=== PATIENT | male | born 1960 | race Caucasian/White ===

== ENCOUNTER 2018-08-29 21:28 | Inpatient (IN) | payer OTHER ==
[2018-08-29 22:31] LABS: #Basophils 0.1 thou/uL (0.0-0.2); #Eosinphils 0.2 thou/uL (0.0-0.7); #Lymphocytes 2.5 thou/uL (1.20-3.40); #Monocytes 0.8 thou/uL (0.11-0.59); #Neutrophils 7.7 thou/uL (1.40-6.50); %Basophils 1.3 % (0.0-1.0); %Eosinophils 1.6 % (0.0-10.0); %Lymphocytes 22.4 % (21.0-51.0); %Monocytes 6.9 % (0.0-10.0); %Neutrophils 67.8 % (42.0-75.0); Hemoglobin 15.6 g/dL (14.0-18.0); Mean Corpuscular HGB CONC 33.7 g/dL (32.0-36.0); Mean Corpuscular Hemoglobin 32.7 pg (27.0-31.0); Mean Corpuscular Volume 97.1 fL (78.0-98.0); Mean Platelet Volume 10.1 fL (7.4-10.4); Platelet Count 176 thou/uL (130-400); RBC Distribution Width 13.1 % (11.5-14.5); Red Blood Cell (RBC) Count 4.76 mill/uL (4.70-6.10); White Blood Cell (WBC) Count 11.3 thou/uL (4.8-10.8)
[2018-08-29 22:53] LABS: ALT (SGPT) 71 U/L (8-55); AST (SGOT) 53 U/L (5-34); Albumin 3.3 g/dL (3.5-5.0); Alkaline Phosphatase 636 U/L (40-150); Anion Gap 10 mmol/L (10-20); BUN (Urea Nitrogen) 18 mg/dL (8.4-25.7); Bilirubin, Total 6.5 mg/dL (0.2-1.2); Calc. Creatinine Clearance 0 mL/min (70-130); Calcium 9.4 mg/dL (7.8-10.44); Carbon Dioxide 24 mmol/L (22-29); Chloride 107 mmol/L (98-107); Estimated GFR-MDRD 90; Glucose 94 mg/dL (70-105); Potassium 4.4 mmol/L (3.5-5.1); Protein, Total 6.3 g/dL (6.0-8.3); Sodium 137 mmol/L (136-145)
[2018-08-29] MEDS ORDERED: Ketorolac Tromethamine 30 MG/ML VIAL ONE (23:02)
[2018-08-29] MEDS ORDERED: Ondansetron PF 4 MG/2 ML Vial ONE (23:02)
[2018-08-30] MEDS ORDERED: Ondansetron PF 4 MG/2 ML Vial IVP PRN ×2 (01:16→17:14)
[2018-08-30] MEDS ORDERED: Ondansetron ODT 4 MG TAB SL PRN (01:16)
[2018-08-30] MEDS ORDERED: Ketorolac Tromethamine 30 MG/ML VIAL IVP PRN (01:18)
[2018-08-30] MEDS ORDERED: Morphine 4 MG/ML VIAL SLOW IVP PRN ×3 (01:18→17:45)
[2018-08-30 01:35] VITALS: BMI 27.3
[2018-08-30] MEDS: Sodium Chloride 0.9% 1,000 ML IV SCH ×2 (02:14→12:14)
--- NOTE | 2018-08-30 09:33 | ULT ---
RIGHT UPPER QUADRANT ULTRASOUND: DATE: 08/29/2018. HISTORY: Right upper quadrant. TECHNIQUE: Multiplanar, bob scale, sonographic imaging of the right upper quadrant provided. FINDINGS: The tape recording machine operator reports a negative Myers's sign. The pancreas is not well seen secondary to obscura tion from bowel gas. There is nonspecific diffuse intrahepatic biliary dilatation. No discrete focal liver lesion is seen . There is mild diffuse nonspecific gallbladder wall thickening. The common bile duct is dilated, m easuring 1.2 cm. The right kidney measures 10.5 cm craniocaudal dimension and demonstrates no stone, hydronephrosis, or mass. IMPRESSION: Intra- and extrahepatic biliary dilatation. Findings are suspicious for a nonvisualized mass causing an obstruction in the region of the pancreatic head and/or ampulla of Vater. Recommend GI consultat ion. Further imaging assessment via MRI/MRCP and/or CT of the abdomen advised. POS: [facility]
--- NOTE | 2018-08-30 12:42 | CON ---
DATE OF CONSULTATION: 08/30/2018 CHIEF COMPLAINT: Itching, weight loss, and jaundice. HISTORY OF PRESENT ILLNESS: Mr. Marte is a 58-year-old man, who started with generalized itching 3 weeks ago. Around that time, his stools started turning whitish or chad colored. He has 1 formed stool per day in general; however, a couple stools per day over the last few days. He has lost 20 pounds over the last 6 months. He has had no fever. He does get some intermittent vague right upper quadrant aching pain, which is mild and lasts for few minutes at a time, intermittently a few times per day. He has had some nausea after eating over the last 3 weeks. He came to the emergency room for further evaluation. Last night, he had an ultrasound done that showed dilation of the biliary tree. His liver tests were also noted to be elevated. PAST MEDICAL HISTORY: Coronary artery disease status post stent. His most recent stent was in 2017. He has hypertension and hyperlipidemia. PAST SURGICAL HISTORY: Positive for inguinal hernia repair. FAMILY HISTORY: Positive for breast cancer in his mother. SOCIAL HISTORY: He smoked a pack per day for decades. No alcohol. No drugs. ALLERGIES: NO KNOWN DRUG ALLERGIES. MEDICATIONS: Prior to admission; 1. Lisinopril. 2. Atorvastatin. 3. Metoprolol. 4. Plavix. REVIEW OF SYSTEMS: Negative x10 systems reviewed except as stated in the history of present illness. PHYSICAL EXAMINATION: VITAL SIGNS: Temperature 97.6, pulse 60, and blood pressure 105/62. GENERAL: He is in no acute distress. He is jaundiced. He has scleral icterus. Oropharynx is clear without lesions. No cervical or supraclavicular lymphadenopathy. LUNGS: Clear to auscultation bilaterally. HEART: Regular rate and rhythm without murmur. ABDOMEN: Soft. Mild tenderness in the right upper quadrant without guarding. Bowel sounds are present. EXTREMITIES: No lower extremity edema. LABORATORY DATA: White blood cell count 11.3, hemoglobin 15.6, and platelets 176. Creatinine 0.88, bilirubin 6.5, AST 53, ALT 71, alkaline phosphatase 636, lipase 144, and albumin 3.3. IMPRESSION: Obstructive jaundice. Ultrasound shows dilation of the intra and extrahepatic ducts and common bile duct down to the head of the pancreas. The bile duct is dilated to 1.2 cm. His bilirubin and alkaline phosphatase are elevated at 6.5 and 600. He presents with a history concerning for malignancy causing obstruction given the weight loss and acholic stools and pruritus. RECOMMENDATIONS: CT scan of the abdomen and pelvis to evaluate for pancreatic head mass. The primary bile duct tumor could also cause this as well. Next step will depend on the findings on the CT. If there is significant liver lesions and likely the next step would be a liver biopsy. If the liver is clear and he has a mass confined to the head of the pancreas, then the next step would likely be endoscopic ultrasound with possible surgery to follow. If no mass is seen in the pancreas, then the next step will likely be MRCP and MRI. Job ID: [id number]
[2018-08-30] MEDS ORDERED: ISOVUE-370 76%-LOCM 1 ML ONE (14:12)
--- NOTE | 2018-08-30 14:45 | CT ---
CT ABDOMEN AND PELVIS WITH IV CONTRAST: DATE: 08/30/2018. PROVIDED CLINICAL HISTORY: Biliary obstruction. FINDINGS: The visualized lung bases are free of significant opacity. There is intrahepatic biliary ductal dilatation and prominence of the common duct. The gallbladder i s moderately distended without overt pericholecystic fluid or fat stranding. There is no evidence fo r a radiopaque common duct calculus. The pancreatic duct is not dilated. There is nonspecific mucos al prominence in the region of the distal common duct/ampulla of Vater. The spleen, pancreas, kidneys, and adrenal glands appear unremarkable. There is no bowel dilatation, inflammatory fat stranding, free fluid, or lymph node enlargement appar ent. There is conspicuous atherosclerotic plaque involving the distal abdominal aorta. Vascular malou cifications are also seen. The osseous structures demonstrate no concerning lytic or blastic lesions. IMPRESSION: 1. Nonspecific soft tissue prominence in the region of the distal common duct/ampulla of Vater, whic h may reflect neoplasm given the biliary obstructive change noted. 2. Atherosclerosis. POS: [facility]
[2018-08-30] MEDS ORDERED: Dextrose 50% Abboject 50 ML SYRINGE SLOW IVP PRN (17:14)
[2018-08-30] MEDS ORDERED: Acetaminophen 325 MG TAB PO PRN (17:14)
[2018-08-30] MEDS ORDERED: Dextrose 5% in Water 1,000 ML IV PRN (17:14)
[2018-08-30] MEDS ORDERED: Mag-Al 1200 mg/1200 mg/30 ML UDCUP PO PRN (17:14)
[2018-08-30] MEDS ORDERED: Promethazine HCl 25 MG/ML VIAL IM PRN (17:14)
[2018-08-30] MEDS ORDERED: hydrALAZINE 20 MG/ML VIAL SLOW IVP PRN (17:14)
[2018-08-30] MEDS ORDERED: Calcium Carbonate 500 MG ChewTAB PO PRN (17:14)
[2018-08-30] MEDS ORDERED: hydrOXYzine 25 MG TAB PO PRN (18:29)
--- NOTE | 2018-08-30 18:52 | PRG ---
DATE OF SERVICE: 08/30/2018 SUBJECTIVE: Mr. Marte had a CT scan performed today. This shows a soft tissue prominence in the distal bile duct or ampulla. No obvious evidence of metastatic lesions was seen. Given the location of this, if it is a malignancy, it appears to be presenting very early. RECOMMENDATIONS: 1. We will request MRI/MRCP tomorrow. 2. He can discharge home after the MRI. 3. Once we have those results, my office can fax all his information to [facility] to arrange an endoscopic ultrasound, and then depending on those findings, potentially surgery. 4. I would hold off ERCP at this point as EUS really should be the next step in his evaluation. Job ID: [id number]
[2018-08-30] MEDS: D5 1/2 NS w/20 mEq KCL 1,000 ML IV SCH (19:43)
[2018-08-30] MEDS: Famotidine 20 MG TAB PO SCH (21:05)
[2018-08-30] MEDS: Famotidine/PF 20 mg/2ml Vial SLOW IVP SCH (21:06)
[2018-08-31] MEDS: D5 1/2 NS w/20 mEq KCL 1,000 ML IV SCH (03:54)
--- NOTE | 2018-08-31 07:22 | CON ---
DATE OF CONSULTATION: 08/29/2018 CHIEF COMPLAINT: Epigastric and right upper quadrant pain. HISTORY OF PRESENT ILLNESS: This is a 58-year-old male with a history of pain in his upper abdomen associated with jaundice, seen in the emergency department where he was found to have significant elevation of his bilirubin. Ultrasound revealed significant pancreatic intra and extrahepatic ductal dilation. He denies previous known history of gallstones, jaundice,or pancreatitis. He does have some skin itching. No associated with fever or chills. Found to have dilation of his bile ducts on ultrasound and elevated bilirubin. PAST MEDICAL HISTORY: Includes cardiac stent, coronary artery disease, hyperlipidemia, hypertension. PAST SURGICAL HISTORY: Includes inguinal hernia surgery, cardiac stent. SOCIAL HISTORY: He is a current smoker. No alcohol. No other drugs. ALLERGIES: NO KNOWN DRUG ALLERGIES. MEDICINES AT HOME: 1. Lisinopril. 2. Statin. 3. Metoprolol. 4. Plavix. REVIEW OF SYSTEMS: A 10-system review of systems otherwise negative unless described above. PHYSICAL EXAMINATION: VITAL SIGNS: Blood pressure 105/62, pulse 60, respirations 20, temperature 97.6. HEENT: Icteric sclerae. Oropharynx clear. NECK: No lymphadenopathy. CHEST: Clear. HEART: Regular rate and rhythm. ABDOMEN: Soft, mildly tender without guarding or rebound. EXTREMITIES: No ischemia or edema to extremities. LABORATORY DATA: White blood cell count 11, hemoglobin 15, platelet counts 176. Sodium 137, potassium 4.4, creatinine 0.88, bilirubin 6.5, AST and ALT are 53 and 71, alkaline phosphatase 636, lipase 144. Ultrasound shows intra and extrahepatic ductal dilatation without obvious gallstones, common bile duct 12 mm. ASSESSMENT: Significant biliary obstruction associated with dilated intra and extrahepatic bile ducts on ultrasound without gallstones. PLAN: We will defer to Gastroenterology at this point further workup likely and includes some other radiologic study of the abdomen. Without gallstones, we will hold off on recommending cholecystectomy at this time. Job ID: [id number]
[2018-08-31] MEDS ORDERED: Lisinopril 10 MG TAB PO SCH (09:00)
[2018-08-31 09:20] LABS: ALT (SGPT) 60 U/L (8-55); AST (SGOT) 53 U/L (5-34); Albumin 3.1 g/dL (3.5-5.0); Alkaline Phosphatase 602 U/L (40-150); Anion Gap 10 mmol/L (10-20); BUN (Urea Nitrogen) 10 mg/dL (8.4-25.7); Bilirubin, Total 5.9 mg/dL (0.2-1.2); Calc. Creatinine Clearance 131 mL/min (70-130); Calcium 8.8 mg/dL (7.8-10.44); Carbon Dioxide 21 mmol/L (22-29); Chloride 109 mmol/L (98-107); Estimated GFR-MDRD Greater than 90; Globulin 2.7 g/dL (2.4-3.5); Glucose 96 mg/dL (70-105); Potassium 4.1 mmol/L (3.5-5.1); Protein, Total 5.8 g/dL (6.0-8.3); Sodium 136 mmol/L (136-145)
--- NOTE | 2018-08-31 09:25 | PRG ---
DATE OF SERVICE: 08/30/2018 ADDENDUM: Regarding the patient's pruritus, he can take hydroxyzine 25 mg every 8 hours as needed. 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 Job ID: [id number]
[2018-08-31 10:07] LABS: Estimated GFR-MDRD - POC Greater than 90
[2018-08-31] MEDS: Famotidine/PF 20 mg/2ml Vial SLOW IVP SCH (10:58)
--- NOTE | 2018-08-31 11:04 | DIS ---
DATE OF ADMISSION: 08/30/2018 DATE OF DISCHARGE: 08/31/2018 ADMITTING DIAGNOSES: Common duct dilation, jaundice. DISCHARGE DIAGNOSES: Common duct dilation, jaundice, pancreatic head versus ampullary mass. PROCEDURES: None. CONDITION ON DISCHARGE: Stable. HOSPITAL COURSE: The patient was admitted with presumed gallstones, although his ultrasound did not show gallstones. He had intrahepatic and pancreatic ductal dilatation. CT scan revealed evidence of mass in the area of the head of the pancreas. Dr. Ramos saw for Gastroenterology. He is having MRCP today. He will be discharged home after that. He likely will need outpatient endoscopic ultrasound. Job ID: [id number]
[2018-08-31 12:04] VITALS: BP 128/75; TEMP 97.3
[2018-08-31] MEDS: Famotidine 20 MG TAB PO SCH (13:11)
--- NOTE | 2018-08-31 14:50 | MRI ---
MRI ABDOMEN WITH AND WITHOUT IV CONTRAST: MRCP: HISTORY: Jaundice. Abdominal pain. CORRELATION: Gallbladder ultrasound from 08/29/2018. CT abdomen and pelvis from 08/30/2018. FINDINGS: There is intrahepatic and extrahepatic biliary ductal dilatation, with the common bile duct measuring 10 mm in diameter. There is a 1 cm filling defect in the distal common bile duct, consistent with c holedocholithiasis. No gallstones are seen. No hepatic mass is identified. The spleen, pancreas, a drenal glands, and kidneys are normal. No free fluid or lymphadenopathy is seen in the abdomen. No aneurysmal dilatation of the abdominal aorta is identified. The bone marrow signal is normal. No ab normal areas of post contrast enhancement are seen. IMPRESSION: Biliary ductal dilatation due to choledocholithiasis. POS: [facility]
== END 2018-08-31 13:45 | disposition home or self-care (01) | DRG 445 ==
LOC: ERS 21:28 → SURG B 08-30 00:56
PROVIDERS: ADMIT Surgery; ATTEND Surgery
DX: K83.8 Other specified diseases of biliary tract (principal); R17 Unspecified jaundice; K86.89 Other specified diseases of pancreas; I25.10 Atherosclerotic heart disease of native coronary artery without angina pectoris; E78.5 Hyperlipidemia, unspecified; I10 Essential (primary) hypertension; F17.210 Nicotine dependence, cigarettes, uncomplicated; Z98.61 Coronary angioplasty status; Z98.890 Other specified postprocedural states
CPT/HCPCS: 36415; 74177; 74183; 76705; 80053; 80074; 82140; 82728; 83690; 85007; 85025; 85027; 96361; 96374; 96375; J1885; J2405; Q9966

== ENCOUNTER 2018-09-01 12:45 | Day surgery (SDC) | payer OTHER ==
[~2018-09-01 12:45] MED LIST: Dexamethasone 20 MG/5 ML VIAL ONE; Glycopyrrolate 0.2 MG/ML 5 ML SYRINGE ONE; Ketorolac Tromethamine 30 MG/ML VIAL ONE; Lidocaine 1% PF 5 ML VIAL ONE; Ondansetron PF 4 MG/2 ML Vial ONE; PROPOFOL 200 MG/20 ML VIAL ONE; Rocuronium Bromide 10 MG/ML (10ML VIAL) ONE
[2018-09-01] MEDS ORDERED: Indomethacin 50 MG SUPP ONE (14:33)
[2018-09-01] MEDS ORDERED: Iothalamate Meglumine 60% 50 ML VIAL FS ONE (14:33)
[2018-09-01] MEDS ORDERED: Midazolam HCl 2 mg/2 ml Vial ONE (14:40)
[2018-09-01] MEDS ORDERED: Fentanyl 100 MCG/2 ML VIAL ONE (14:40)
--- NOTE | 2018-09-01 16:58 | RAD ---
ERCP: 09/01/18 Three fluoroscopic images from OR are presented during ERCP procedure. INDICATION: Imaging during ERCP procedure. Jaundice, abnormal CT and ultrasound. FINDINGS/IMPRESSION: Initial images show luminal narrowing of the more distal common duct which is poorly opacified. The m id and upper common duct is opacified and appears unremarkable. Final image shows evidence of a bilia ry stent in place. POS: [facility]
--- NOTE | 2018-09-01 22:00 | OP ---
DATE OF PROCEDURE: 09/01/2018 TONNAGE COMPILATION CLERK SURGEON: None. PROCEDURE: ERCP with biliary sphincterotomy, cytology brushings, and biliary stent placement. INDICATION: A 58-year-old man with painless obstructive jaundice, MRCP imaging suggestive of choledocholithiasis. The patient has elevated LFTs with bilirubin 5.6. MEDICATIONS: 1. See Anesthesia record. 2. Indomethacin 100 mg per rectum. FINDINGS: After discussion of the risks, benefits, and alternatives of the procedure, informed consent was obtained and witnessed. Preendoscopic cardiopulmonary examination was satisfactory. Time-out was performed before sedation was achieved. Sedation was achieved with Anesthesia assistance in the endoscopy unit. The patient was placed in the supine position on the fluoroscopy table under general anesthesia. A Pentax adult side-viewing duodenum scope was advanced beyond the mouth and esophagus, beyond the stomach and into the second portion of the duodenum. The ampulla was brought into view with the endoscope in the short position. The ampulla appeared prominent, but otherwise normal. Using a triple lumen dome-tipped sphincterotome and a 0.035 guidewire, we were able to selectively cannulate the common bile duct. Advancement of the wire beyond the ampulla was initially quite difficult as the wire seemed to be curling up in the very distal common bile duct, but eventually the wire was able to be passed up into the right intrahepatic system without difficulty. Biliary cholangiogram was then performed. This showed a mildly dilated common bile duct with good filling of the left intrahepatic ducts, but the right intrahepatic duct did not fill well. In the distal common bile duct, I was unable to see any discrete filling defect, but rather the bile duct tapers down and is irregularly narrow distally for just 1-2 cm. I did perform a generous biliary sphincterotomy. Following sphincterotomy, multiple passes were made with a 12-mm balloon fully inflated. There was a small amount of biliary sludge, but certainly no discrete gallstone visualized or extracted. At this point, it was decided to proceed with cytology brushings of the distal common bile duct stricture. Brushings were obtained. We then proceeded with biliary stent placement. I placed a 7 cm x 11.5-Dominican straight plastic dual flanged stent into the distal common bile duct across the ampulla. The stent was placed easily and noted to be in good position, with good flow of bile. At this point, the working apparatus and endoscope were completely withdrawn suctioning out excess air and fluid. Postprocedure fluoroscopic images demonstrated no retroperitoneal or subdiaphragmatic free air. The patient tolerated the procedure well. There were no immediate postprocedure complications. IMPRESSION: 1. Short distal biliary stricture, brushed for cytology. 2. Mildly dilated common bile duct, with no discrete filling defects seen, other than irregular distal biliary stricture. 3. Balloon sweep of the common bile duct was negative. 4. Successful biliary sphincterotomy. 5. Successful placement of 7 cm x 11.5-Dominican straight dual flanged plastic stent to the distal common bile duct across the ampulla. RECOMMENDATIONS: 1. Advance diet. 2. Discharge home. 3. Follow up cytology results. 4. Clinic follow up with Dr. Ramos in the next 1-2 weeks. Job ID: [id number]
== END 2018-09-01 17:40 | disposition home or self-care (01) ==
LOC: SDC 12:45
PROVIDERS: ATTEND Internal Medicine
PROC: 0F798DZ Dilation of Common Bile Duct with Intraluminal Device, Via Natural or Artificial Opening Endoscopic (ICD-10-PCS; principal; 2018-09-01)
DX: K83.1 Obstruction of bile duct (principal); K83.8 Other specified diseases of biliary tract; Z88.8 Allergy status to other drugs, medicaments and biological substances; Z79.52 Long term (current) use of systemic steroids; Z79.02 Long term (current) use of antithrombotics/antiplatelets; Z79.899 Other long term (current) drug therapy
CPT/HCPCS: 74330; 88104; 88112; 93005; 93010; J1100; J1885; J2001; J2250; J2405; J2704; J3010; Q9961

== ENCOUNTER 2018-09-01 22:37 | Inpatient (IN) | payer OTHER ==
[2018-09-01] MEDS ORDERED: Ketamine 50 MG/ML (10ML VIAL) ONE (22:44)
[2018-09-01] MEDS ORDERED: Lidocaine Viscous Sol 2% 15 ml UD Cup ONE (22:44)
[2018-09-01] MEDS ORDERED: Lidocaine 4% Topical Sol 50 ML BOT ONE (22:44)
[2018-09-01] MEDS ORDERED: Succinylcholine Chloride 20 MG/ML 10 ml SYRINGE FS ONE (22:47)
[2018-09-01] MEDS ORDERED: Midazolam HCl 2 mg/2 ml Vial ONE (22:53)
[2018-09-01] MEDS ORDERED: Propofol 1,000 MG/100 ML VIAL IV ONE (22:53)
[2018-09-01] MEDS ORDERED: Fentanyl 100 MCG/2 ML VIAL ONE (23:14)
--- NOTE | 2018-09-01 23:16 | RAD ---
CHEST ONE VIEW: 09/01/18 HISTORY: Intubation. Chest pain. FINDINGS: No comparison. The cardiac silhouette is magnified by projection. Pulmonary vasculature is slightly engorged with mi ld bilateral perihilar infiltrate. Mediastinum is midline. Tip of an endotracheal catheter overlies t he thoracic inlet. No evidence of pneumothorax. Defibrillator patch overlies the right axilla. IMPRESSION: Endotracheal catheter is in good radiographic position. Mild pulmonary vascular congestion. POS: [facility]
[2018-09-01] MEDS ORDERED: fentaNYL Citrate/PF 2,000 MCG in Sodium Chloride 0.9% 60 ML IV SCH (23:23)
[2018-09-01 23:31] LABS: Band 12 % (5-11); Hemoglobin 15.9 g/dL (14.0-18.0); Lymphocytes 7 % (21-51); MDiff Complete? YES; Mean Corpuscular HGB CONC 32.5 g/dL (32.0-36.0); Mean Corpuscular Hemoglobin 31.5 pg (27.0-31.0); Mean Corpuscular Volume 96.8 fL (78.0-98.0); Mean Platelet Volume 11.1 fL (7.4-10.4); Monocytes 1 % (0-10); Neutrophil 80 % (42-75); Platelet Count 197 thou/uL (130-400); Platelet Morphology Comment Appears Adequate; RBC Distribution Width 13.1 % (11.5-14.5); Red Blood Cell (RBC) Count 5.04 mill/uL (4.70-6.10); White Blood Cell (WBC) Count 9.9 thou/uL (4.8-10.8)
[2018-09-01 23:35] LABS: ALT (SGPT) 72 U/L (8-55); AST (SGOT) 62 U/L (5-34); Albumin 3.6 g/dL (3.5-5.0); Alkaline Phosphatase 709 U/L (40-150); Anion Gap 13 mmol/L (10-20); BUN (Urea Nitrogen) 14 mg/dL (8.4-25.7); Bilirubin, Total 7.6 mg/dL (0.2-1.2); Calc. Creatinine Clearance 0 mL/min (70-130); Calcium 9.7 mg/dL (7.8-10.44); Carbon Dioxide 25 mmol/L (22-29); Chloride 104 mmol/L (98-107); Estimated GFR-MDRD 76; Globulin 3.3 g/dL (2.4-3.5); Glucose 177 mg/dL (70-105); Potassium 4.4 mmol/L (3.5-5.1); Protein, Total 6.9 g/dL (6.0-8.3); Sodium 138 mmol/L (136-145)
[2018-09-01 23:35] LABS: Actual Bicarbonate (HCO3a) 22.3 mEq/L (22-28); Analyzer IN Cardio ER; Base Excess (BEa) -2.7 mEq/L (-2.0 to +3.0); CO2 Tension 39.5 mmHg (35.0-45.0); Calcium, Ionized 1.11 mmol/L (1.12-1.30); Hemoglobin (Hb) 14.8 g/dL (14.0-18.0); O2 Tension (PaO2) 111.9 mmHg (80.0-100.0); Potassium - ABG Lab 4.17 mmol/L (3.70-5.30); pH, Arterial 7.37 (7.35-7.45)
[2018-09-01 23:37] LABS: ALV-art Gradient 195.225 (0-20); Puncture Site RRA
[2018-09-01] MEDS ORDERED: diphenhydrAMINE 50 MG/ML VIAL ONE (23:38)
[2018-09-01] MEDS ORDERED: Famotidine/PF 20 mg/2ml Vial ONE (23:38)
[2018-09-01] MEDS ORDERED: methylPREDNISolone Sod Succ/PF 125 MG/2 ML VIAL ONE (23:38)
[2018-09-01 23:50] LABS: Bilirubin Large (Negative); Blood, Urine Negative (Negative); Clarity CLOUDY (Clear); Glucose, Urine (Dipstick) Negative (Negative); Leukocyte Small (Negative); Nitrite Positive (Negative); Protein, Urine (Dipstick) Trace mg/dL (Neg-Trace); Specific Gravity, Urine 1.024 (1.002-1.036)
[2018-09-01] MEDS ORDERED: Ondansetron PF 4 MG/2 ML Vial IVP PRN (23:56)
[2018-09-01] MEDS ORDERED: Acetaminophen 325 MG TAB PO PRN (23:56)
[2018-09-01] MEDS ORDERED: Ondansetron ODT 4 MG TAB PO PRN (23:56)
[2018-09-01 23:58] LABS: Squamous Epithelial 0-3 HPF (0-3)
[2018-09-01 23:59] LABS: Pathc Cast-AUWi Flag 4.35 (0-2.49); Yeast-AUWi Flag 67.6 (0-25.0)
[2018-09-02] MEDS ORDERED: Ventilator Sedation Protocol 1 EACH FS ONE (00:02)
[2018-09-02 00:11] LABS: Bacteria/HPF 1+ HPF (None Seen); Hyaline Casts/LPF 0-3 HYALINE CAST LPF (0-3 Hyaline); Oval Fat Bodies/HPF None Seen HPF (None Seen); RBC/HPF 0-3 HPF (0-3); Renal Epithelial 0-3 HPF (0-3); Sperm/HPF None Seen HPF (None Seen); Transitional Epithelial NONE SEEN HPF (0-3); Trichomonas/HPF None Seen HPF (None Seen); Yeast-All Forms None Seen HPF (None Seen)
[2018-09-02] MEDS ORDERED: Bacteriostatic Water 30 ML VIAL FS PRN (00:11)
[2018-09-02] MEDS ORDERED: Propofol BOLUS 1,000 MG/100 ML VIAL IV PRN (00:12)
[2018-09-02] MEDS ORDERED: Lorazepam 2 MG/ML VIAL SLOW IVP PRN (00:12)
[2018-09-02] MEDS ORDERED: Fentanyl BOLUS 250 ML IVPB PRN (00:12)
[2018-09-02] MEDS ORDERED: Morphine 2 MG/ML SYRINGE SLOW IVP PRN (00:12)
[2018-09-02] MEDS ORDERED: DISCONTINUE PREVIOUS NARCOTIC PAIN MEDICATIONS AND BENZODIAZEPINES FS SCH (00:12)
[2018-09-02] MEDS ORDERED: diphenhydrAMINE 50 MG in Sodium Chloride 0.9% 50 ML IVPB SCH (00:15)
[2018-09-02] MEDS ORDERED: cefTRIAXone\\ROCEPHIN 1 GM VIAL ONE (00:18)
[2018-09-02] MEDS ORDERED: diphenhydrAMINE 50 MG/ML VIAL IVP PRN (00:20)
[2018-09-02] MEDS: Sodium Chloride 0.9% 1,000 ML IV SCH ×4 (01:15→13:14)
[2018-09-02 01:48] VITALS: BMI 29.5
[2018-09-02] MEDS: methylPREDNISolone Sod Succ 40 MG VIAL IVP SCH ×4 (02:54→18:24)
--- NOTE | 2018-09-02 02:55 | HP ---
PRIMARY CARE DOCTOR: Markos Silveira MD. CODE STATUS: Full code. TIME OF EVALUATION: 2345 hours. CHIEF COMPLAINT: Lip and tongue swelling. HISTORY OF PRESENT ILLNESS: Information is being gathered from the family. The patient is intubated and sedated by ER staff. The patient is a 58-year-old male patient with past medical history of previous coronary artery disease, hyperlipidemia, hypertension, came to the hospital after having an ERCP today. The patient has recent admission to the hospital where he was jaundiced, was seen by GI and he was sent home and was called for an ERCP as outpatient that was done early in the morning in the office, the patient went home with some swelling in the upper lips, initially thought to be related to small trauma from intubation. The patient went home, fell asleep and after waking up couple of hours after the patient had significant swelling along the upper lip and also in the tongue. For that reason, he came to the hospital. He was intubated for airway protection in the ER, no clear triggers. We are not clear what medication the patient had during the procedure , if there is any allergies to any of those medications, daughter told the patient has indomethacin, but she denies that the patient had any allergies to NSAID before or aspirin. The patient also had a history of being taking lisinopril, this could be also a possibility for it. We will place the patient in ICU on sedation protocol to treat him with antiallergic medications and we will follow closely. The patient was stable by the time I have seen him in the ER. REVIEW OF SYSTEMS: Unable to obtain, the patient is intubated and sedated. PAST MEDICAL HISTORY: As mentioned in the HPI. SURGICAL HISTORY: 1. Hernia surgery. 2. Stent x1. PSYCHIATRIC HISTORY: No previous psych history. SOCIAL HISTORY: The patient smoked one pack per day. FAMILY HISTORY: MOTHER :BREAST CANCER, FATHER ACUTE PR ALLERGIES: NO KNOWN DRUG ALLERGIES. REPORTED MEDICATIONS: 1. Lisinopril. 2. Atorvastatin. 3. Metoprolol. 4. Plavix. 5. Hydralazine. PHYSICAL EXAMINATION: VITAL SIGNS: On presentation, blood pressure 176/92 with heart rate of 110, respiratory rate was 24, oxygen saturation was 100 on non-rebreather. GENERAL APPEARANCE: The patient is intubated, sedated: HEAD AND EYES: Normal conjunctiva. Moist oral mucosa. Anicteric. No JVD. RESPIRATORY: Bilateral air entry. No rales. No wheezing. Symmetric expansion. The patient is intubated. CARDIOVASCULAR: The patient is mildly tachycardic. Blood pressure has come down to normal after sedation. Normal breathing, no murmurs, no gallops, no edema. ABDOMEN: Soft, normal bowel sounds. MUSCULOSKELETAL: Baseline range of motion and strength, no tenderness. SKIN: Warm, intact. No pallor. No rash. No redness. Peripheral pulses are present. Capillary refill seems to be intact. NEUROLOGIC: No evidence of any new focal weakness. Baseline speech. Cranial nerves seems to be intact. PSYCHIATRIC: The patient is in good mood. No anxiety. Optimal judgment. IMAGING STUDIES: 1. EKG was reviewed. The patient has sinus tachycardia at the rate of 119, CT 156, QRS 106, QT corrected 441. 2. Chest x-ray was reviewed. The patient has endotracheal catheter in good satisfactory position, mild pulmonary vascular congestion. LABORATORY DATA: The labs were reviewed. The patient has white count of 9.9, hemoglobin 15.9, MCV 96.8, platelet count 197. Blood gas, pH 7.37, pCO2 39.5, PO2 111. Chemistry: Sodium 138, potassium 4.4, chloride 104, carbon dioxide 25, anion gap 13, BUN 14, creatinine 1.01, GFR 76, glucose 177, calcium 9.7, total bilirubin 7.6, AST 62, ALT 72, alkaline phosphatase was 709. Serum total protein 6.9. Urine was done. The patient has white count of 4-6 with large bilirubin. ASSESSMENT AND PLAN: The patient placed in the hospital with following medical problems: 1. Severe allergic reaction with airway obstruction. Patient got intubated, has been stabilized, on sedation protocol right now, concern for lisinopril related angioedema; however, patient came out of the procedure(ERCP from this morning) with some swelling in the lips. Question rises to relationship with any medication received during the procedure and/or contrast and the patient developed an allergic reaction. We will continue to monitor in ICU, continue sedation protocol, vent management. The patient has no wheezing, we will give Solu-Medrol, anti-H1/H2, epinephrine, if needed in case of anaphylactic shock. 2. Recent common bile duct obstruction with elevation of the liver function tests, this problem seems to have resolved early this morning. We will monitor. I called Dr. Parr who was following this patient and did the procedure. 3. Hyperglycemia, blood sugar 177. No history of diabetes, we will monitor. It could be secondary to acute physical distress or glucose intolerance. No need for any acute intervention at this point. We will treat accordingly. 4. History of coronary artery disease, this problem is chronic, seems to be stable. Reconcile home medications. 5. Hyperlipidemia, low-cholesterol diet is advised, reconcile home medications. 6. Deep venous thrombosis prophylaxis. Job ID: [id number] [facility]
[2018-09-02] MEDS ORDERED: Sodium Chloride 0.9% 1,000 ML IV SCH ×3 (03:30→16:30)
[2018-09-02 05:36] LABS: Anion Gap 11 mmol/L (10-20); BUN (Urea Nitrogen) 13 mg/dL (8.4-25.7); Calc. Creatinine Clearance 143 mL/min (70-130); Calcium 8.4 mg/dL (7.8-10.44); Carbon Dioxide 20 mmol/L (22-29); Chloride 111 mmol/L (98-107); Estimated GFR-MDRD Greater than 90; Glucose 155 mg/dL (70-105); Potassium 4.4 mmol/L (3.5-5.1); Sodium 138 mmol/L (136-145)
[2018-09-02] MEDS ORDERED: methylPREDNISolone Sod Succ/PF 125 MG/2 ML VIAL IVP SCH (06:00)
[2018-09-02 06:07] LABS: #Lymphocytes 0.8 thou/uL (1.20-3.40); #Monocytes 0.1 thou/uL (0.11-0.59); #Neutrophils 6.2 thou/uL (1.40-6.50); %Basophils 0.2 % (0.0-1.0); %Eosinophils 0.2 % (0.0-10.0); %Lymphocytes 11.3 % (21.0-51.0); %Monocytes 0.9 % (0.0-10.0); %Neutrophils 87.4 % (42.0-75.0); Hemoglobin 17.7 g/dL (14.0-18.0); Mean Corpuscular HGB CONC 33.3 g/dL (32.0-36.0); Mean Corpuscular Hemoglobin 32.3 pg (27.0-31.0); Mean Corpuscular Volume 96.9 fL (78.0-98.0); Platelet Count 107 thou/uL (130-400); RBC Distribution Width 13.5 % (11.5-14.5); Red Blood Cell (RBC) Count 5.48 mill/uL (4.70-6.10); White Blood Cell (WBC) Count 7.1 thou/uL (4.8-10.8)
[2018-09-02 07:21] LABS: Actual Bicarbonate (HCO3a) 20.8 mEq/L (22-28); Base Excess (BEa) -4.3 mEq/L (-2.0 to +3.0); CO2 Tension 38.5 mmHg (35.0-45.0); Calcium, Ionized 1.13 mmol/L (1.12-1.30); Carboxyhemoglobin (COHb) 1.2 gm% (0.0-3.0); Hemoglobin (Hb) 14.1 g/dL (14.0-18.0); O2 Tension (PaO2) 111.3 mmHg (80.0-100.0); Potassium - ABG Lab 4.08 mmol/L (3.70-5.30); pH, Arterial 7.35 (7.35-7.45)
[2018-09-02 07:27] LABS: ALV-art Gradient 125.775 (0-20); Puncture Site L.R.
[2018-09-02] MEDS ORDERED: Enoxaparin Sodium 40 MG/0.4 ML SYRINGE SC SCH (09:00)
[2018-09-02] MEDS: Clopidogrel Bisulfate 75 MG TAB PER TUBE SCH (09:11)
[2018-09-02] MEDS: Famotidine/PF 20 mg/2ml Vial SLOW IVP SCH ×2 (09:11→20:55)
[2018-09-02] MEDS: Propofol 1,000 MG/100 ML VIAL IV PRN (09:20)
--- NOTE | 2018-09-02 10:16 | CON ---
DATE OF CONSULTATION: 09/02/2018 SERVICE: Pulmonary Medicine. REASON FOR CONSULT: ICU patient, is intubated. HISTORY OF PRESENT ILLNESS: The patient is a 58-year-old white male with past medical history significant for essentially nothing. He was in the hospital yesterday for an ERCP. Following the procedure, he was noted to have a swollen lip. It was attributed to possible traumatic intubation. As such, he was discharged from the hospital, but he had increasing shortness of breath and swelling of the lips when he got home. EMS intubated him in the field nasally. He was brought back in on mechanical ventilation and tucked into the ICU. Overnight, he was given some FFP, and some steroids. He cannot provide much in the way of history at this point. He is requiring a little bit of sedation. Because of the fentanyl, he developed a bradyarrhythmia that stopped as soon as we got rid of the fentanyl. Otherwise, there has been no events. PAST MEDICAL HISTORY: 1. Coronary artery disease. 2. Dyslipidemia. 3. Hypertension. 4. Biliary stricture, status post ERCP with sphincterotomy, postop day 1. PAST SURGICAL HISTORY: 1. Herniorrhaphy. 2. Stent x1. 3. ERCP. SOCIAL HISTORY: Negative for alcohol, tobacco, or illicit drug use. He has a history of smoking. FAMILY HISTORY: Noncontributory. ALLERGIES: LISINOPRIL, POSSIBLY CAUSES ANGIOEDEMA. MEDICATIONS: List of the inpatient medications was reviewed and modified. REVIEW OF SYSTEMS: Cannot be obtained as the patient is currently intubated and sedated. PHYSICAL EXAMINATION: VITAL SIGNS: Afebrile, pulse 41, blood pressure 81/45, respirations 16, and saturation 100% on 27% FiO2 and a PEEP of 5. GENERAL: The patient is intubated and sedated. HEENT: He is nasally intubated in the left naris. There is dried blood around bilateral nostrils. He has swelling of the upper and lower lip, consistent with angioedema. LUNGS: Excellent air entry. There is a prolonged expiratory phase. No wheezing or rhonchi appreciated. HEART: Bradycardic. Regular. ABDOMEN: Soft. It is slightly distended. There is no rebound or guarding. Bowel sounds are hyperactive. : Benson catheter in place. NEUROLOGIC: Grossly nonfocal. MUSCULOSKELETAL: No cyanosis or clubbing. There is no pitting in the bilateral lower extremities. LABORATORY DATA: WBC 7.1, hemoglobin 17.7, platelets 107,000. PH of 7.35, pCO2 of 38, pO2 of 111. Basic metabolic profile is unremarkable. Liver function studies include an elevated AST, ALT, and alkaline phosphatase. Alkaline phosphatase is the predominantly elevated lab. Urinalysis is unremarkable. IMAGING STUDIES: Chest x-ray shows patchy infiltrates throughout bilateral lung shankar and interstitial prominence. There are some B lines, and fluid in the fissure. The endotracheal tube is 6 cm above the level of the charo. ASSESSMENT: 1. Angioedema. 2. Sinus bradycardia, likely secondary to fentanyl. 3. Cholestasis. DISCUSSION AND PLAN: We are awaiting the pathology on the brushing. We will repeat LFTs tomorrow morning as well as the lipase. DEYA inhibitor has been included in the patient's allergy list. I do not think there is a reason to rechallenge him. It is not clear whether this was an effect of anesthesia, or his lisinopril or combination of the two. That being said, we will get rid of that indefinitely. Steroids will be continued. Pulmonary Critical Care will continue to follow along, but he will remain intubated until the swelling in the lip starts to recede. Job ID: [id number]
[2018-09-02] MEDS: Sodium Chloride 0.45% 1,000 ML IV SCH ×2 (10:20→20:03)
--- NOTE | 2018-09-02 14:35 | PDOC.PN ---
- Subjective Encounter Start Date: 09/02/18 Encounter Start Time: 14:25 Subjective: f/u for anaphylactic rxn/angioedema likely due to Lisinopril. Receiving -: Solumedrol, Benadryl, Pepcid. Nsg reports hypotensive on IVF's. - Objective Resuscitation Status - Order Detail: 09/01/18 23:56 Resuscitation Status Routine Resuscitation Status: FULL: Full Resuscitation MAR Reviewed: Yes Vital Signs & Weight: Vital Signs (12 hours) Temp Pulse Resp BP Pulse Ox 09/02/18 14:00 15 09/02/18 13:42 51 L 91/50 L 09/02/18 13:40 57 L 14 100 09/02/18 12:00 98.3 F 14 99 09/02/18 10:42 116 H 150/109 H 09/02/18 10:00 12 09/02/18 08:00 97.7 F 16 100 09/02/18 06:53 45 L 94/55 L 09/02/18 06:00 16 09/02/18 04:00 97.5 F L 16 09/02/18 02:56 100 Weight Weight 200 lb 2.876 oz Most Recent Monitor Data Heart Rate from ECG 77 NIBP 98/54 NIBP BP-Mean 68 Respiration from ECG 16 SpO2 99 I&O: 09/01/18 09/02/18 09/03/18 06:59 06:59 06:59 Intake Total 1594 1000 Output Total 185 220 Balance 1409 780 Result Diagrams: 09/02/18 05:07 09/02/18 05:07 Additional Labs: Laboratory Tests 08/27/18 08/29/18 08/31/18 12:00 22:25 08:42 Plt Count Neutrophils % (Manual) Band Neuts % (Manual) Total Bilirubin 7.0 H 6.5 H 5.9 H AST 68 H 53 H 53 H ALT 94 H 71 H 60 H Alkaline Phosphatase 702 H 636 H 602 H 09/01/18 09/01/18 22:46 22:46 Plt Count 197 Neutrophils % (Manual) 80 H Band Neuts % (Manual) 12 H Total Bilirubin 7.6 H AST 62 H ALT 72 H Alkaline Phosphatase 709 H Radiology Reviewed by me: Yes (PCXR - no acute infiltrates) EKG Reviewed by me: Yes (Tele - SR in 50's) Phys Exam - Physical Examination opens eyes briefly to name, ETT in L nares, NGT in place, dried blood in nares, + edema of lips and perioral region HEENT: PERRLA Neck: no nodes, no JVD, supple few scattered rhonchi Respiratory: no wheezing, no rales, clear to auscultation bilateral S1, S2 Cardiovascular: RRR, no significant murmur, no rub, gallop Gastrointestinal: soft, non-tender, no distention, positive bowel sounds Musculoskeletal: pulses present, edema present Neurological: moves all 4 limbs Skin: normal turgor, cap refill <2 seconds Deviation from normal: Benson with coffee colored urine Dx/Plan (1) Angioedema Code(s): T78.3XXA - ANGIONEUROTIC EDEMA, INITIAL ENCOUNTER Status: Acute Comment: Suspected due to Lisinopril, continue Solumedrol, Benadryl and Pepcid, serial monitoring (2) Acute respiratory failure with hypoxia Code(s): J96.01 - ACUTE RESPIRATORY FAILURE WITH HYPOXIA Status: Acute Comment: Continue SIMV, wean as clinically indicated and airway protection improves, PCXR in am (3) Hypotension Status: Acute Comment: Suspect due to #1, volume depletion, bolus NS IV x 1L and continue maintenance IVF's, avoid all antihypertensives (4) Choledocholithiasis Code(s): K80.50 - CALCULUS OF BILE DUCT W/O CHOLANGITIS OR CHOLECYST W/O OBST Status: Acute Comment: s/p ERCP with dilation and stent placement 09/01/18, serial LFT's - Plan licensed master social worker, respiratory therapy, DVT proph w/SCDs Continue critical support -: Bolus NS 1 L IV x 1 now -: Continue Solumedrol, Benadryl and Pepcid -: Hold Plavix -: D/C Lovenox * AM lab: CMP, CBC, Mg++, PO3 * PCXR in am
[2018-09-02] MEDS ORDERED: DOPamine 400 MG/D5W 250 ML 250 ML IVPB SCH ×2 (16:00→16:30)
[2018-09-02] MEDS: Atorvastatin Calcium 40 MG TAB PER TUBE SCH (20:55)
[2018-09-03] MEDS: methylPREDNISolone Sod Succ 40 MG VIAL IVP SCH ×3 (00:45→12:09)
[2018-09-03 05:06] LABS: ALT (SGPT) 52 U/L (8-55); AST (SGOT) 41 U/L (5-34); Albumin 2.9 g/dL (3.5-5.0); Alkaline Phosphatase 486 U/L (40-150); Anion Gap 12 mmol/L (10-20); BUN (Urea Nitrogen) 16 mg/dL (8.4-25.7); Bilirubin, Total 5.1 mg/dL (0.2-1.2); Calc. Creatinine Clearance 134 mL/min (70-130); Calcium 8.4 mg/dL (7.8-10.44); Carbon Dioxide 20 mmol/L (22-29); Chloride 111 mmol/L (98-107); Estimated GFR-MDRD Greater than 90; Globulin 2.7 g/dL (2.4-3.5); Glucose 153 mg/dL (70-105); Phosphorus 2.7 mg/dL (2.3-4.7); Potassium 4.1 mmol/L (3.5-5.1); Protein, Total 5.6 g/dL (6.0-8.3); Sodium 139 mmol/L (136-145)
[2018-09-03] MEDS: Sodium Chloride 0.45% 1,000 ML IV SCH (05:57)
[2018-09-03] MEDS: Propofol 1,000 MG/100 ML VIAL IV PRN (05:58)
[2018-09-03 06:18] LABS: #Basophils 0.1 thou/uL (0.0-0.2); #Lymphocytes 1.5 thou/uL (1.20-3.40); #Monocytes 0.5 thou/uL (0.11-0.59); #Neutrophils 17.4 thou/uL (1.40-6.50); %Basophils 0.4 % (0.0-1.0); %Eosinophils 0.1 % (0.0-10.0); %Lymphocytes 7.7 % (21.0-51.0); %Monocytes 2.4 % (0.0-10.0); %Neutrophils 89.4 % (42.0-75.0); Hemoglobin 13.2 g/dL (14.0-18.0); Mean Corpuscular Hemoglobin 32.6 pg (27.0-31.0); Mean Corpuscular Volume 98.8 fL (78.0-98.0); Mean Platelet Volume 10.5 fL (7.4-10.4); Platelet Count 201 thou/uL (130-400); RBC Distribution Width 13.5 % (11.5-14.5); Red Blood Cell (RBC) Count 4.06 mill/uL (4.70-6.10); White Blood Cell (WBC) Count 19.5 thou/uL (4.8-10.8)
[2018-09-03] MEDS ORDERED: Magnesium 2 GM/50 ML 2 GM in Premix Bag 1 BAG IVPB SCH (08:45)
[2018-09-03] MEDS: Famotidine/PF 20 mg/2ml Vial SLOW IVP SCH (09:45)
--- NOTE | 2018-09-03 10:13 | PDOC.PN ---
- Subjective Encounter Start Date: 09/03/18 Encounter Start Time: 10:10 Subjective: f/u for angioedema due to Lisinopril and s/p intubation now extubated -: Feels much better today. Wants to eat something. - Objective Resuscitation Status - Order Detail: 09/01/18 23:56 Resuscitation Status Routine Resuscitation Status: FULL: Full Resuscitation MAR Reviewed: Yes Vital Signs & Weight: Vital Signs (12 hours) Temp Pulse Resp BP Pulse Ox 09/03/18 07:13 43 L 107/59 L 09/03/18 06:00 12 09/03/18 04:00 97.7 F 11 L 99 09/03/18 02:00 13 09/03/18 00:00 98.4 F 14 09/02/18 23:35 54 L 12 100 Weight Admit Weight 200 lb Weight 200 lb 2.876 oz Most Recent Monitor Data Heart Rate from ECG 46 NIBP 107/58 NIBP BP-Mean 74 Respiration from ECG 12 SpO2 100 I&O: 09/02/18 09/03/18 09/04/18 06:59 06:59 06:59 Intake Total 1594 4826.1 Output Total 185 1495 Balance 1409 3331.1 Result Diagrams: 09/03/18 05:56 09/03/18 04:26 Additional Labs: Laboratory Tests 08/27/18 08/29/18 08/31/18 12:00 22:25 08:42 Plt Count Neutrophils % (Manual) Band Neuts % (Manual) Total Bilirubin 7.0 H 6.5 H 5.9 H AST 68 H 53 H 53 H ALT 94 H 71 H 60 H Alkaline Phosphatase 702 H 636 H 602 H 09/01/18 09/01/18 22:46 22:46 Plt Count 197 Neutrophils % (Manual) 80 H Band Neuts % (Manual) 12 H Total Bilirubin 7.6 H AST 62 H ALT 72 H Alkaline Phosphatase 709 H EKG Reviewed by me: Yes (Tele - SR) Phys Exam - Physical Examination Constitutional: NAD minimal periorbital edema HEENT: PERRLA, sclera anicteric, oral pharynx no lesions Neck: no nodes, no JVD, supple, full ROM occ exp wheezes Respiratory: no rales S1, S2 Cardiovascular: RRR, no significant murmur, no rub, gallop Gastrointestinal: soft, non-tender, no distention, positive bowel sounds Musculoskeletal: no edema, pulses present Neurological: normal sensation, moves all 4 limbs Psychiatric: A&O x 3 Skin: normal turgor, cap refill <2 seconds Dx/Plan (1) Angioedema Code(s): T78.3XXA - ANGIONEUROTIC EDEMA, INITIAL ENCOUNTER Status: Acute Comment: Suspected due to Lisinopril, improved, avoid DEYA-i, continue Benadryl, convert to Prednisone (2) Acute respiratory failure with hypoxia Code(s): J96.01 - ACUTE RESPIRATORY FAILURE WITH HYPOXIA Status: Acute Comment: Resolved, extubated this am, supplemental O2 prn (3) Hypotension Status: Acute Comment: Improved, continue serial BP monitoring, hold all antihypertensives (4) Choledocholithiasis Code(s): K80.50 - CALCULUS OF BILE DUCT W/O CHOLANGITIS OR CHOLECYST W/O OBST Status: Acute Comment: s/p ERCP with dilation and stent placement 09/01/18, serial LFT's (5) Transaminitis Code(s): R74.0 - NONSPEC ELEV OF LEVELS OF TRANSAMNS & LACTIC ACID DEHYDRGNSE Status: Acute Comment: Secondary to biliary dyskinesia and sludge, s/p ERCP with CBD stent placment, improving trend overall - Plan plan discussed w/ family, PT/OT, neonatal social worker, respiratory therapy, DVT proph w/SCDs Stable overall -: Continue Solumedrol, Benadryl another 24h -: Clear liquid diet -: OOB/ambulate -: Transfer to telemetry * AM lab: CMP, CBC, Mg++, PO3 * Likely home in 24h
--- NOTE | 2018-09-03 17:39 | PRG ---
DATE OF SERVICE: 09/03/2018 SERVICE: Pulmonary Medicine. INTERVAL HISTORY: The patient is doing outstanding from respiratory standpoint. His upper and lower lip swelling has completely resolved. Overnight, he developed a fairly significant leak. This morning, he is on a spontaneous breathing trial. Sedation has been held. We are waiting him to fully wake up. Otherwise, there has been no change to his condition. Nursing reports no overnight events. PHYSICAL EXAMINATION: VITAL SIGNS: Afebrile, pulse 92, blood pressure is 172/80, respirations 20, and saturation 95% on 21% FiO2 and a PEEP of 5. HEENT: Normocephalic and atraumatic. Sclerae white. Conjunctivae pink. Oral mucosa is moist without lesions. All swelling of the upper and lower lips has resolved. Tongue swelling has resolved. LUNGS: Excellent air entry with no prolonged expiratory phase. Rhonchi are present, but clear with cough. HEART: Normal rate. Regular. ABDOMEN: Soft, nontender, and nondistended. Bowel sounds are positive. MUSCULOSKELETAL: No cyanosis or clubbing. No pitting in bilateral lower extremities. NEUROLOGIC: Grossly nonfocal. LABORATORY DATA: WBC 19.5, hemoglobin 13.2 and downtrending, and platelets 201,000 and beautifully responding. Basic metabolic profile and liver function studies are essentially unremarkable. Creatinine 0.79. Alkaline phosphatase, AST, and ALT are all downtrending. Nitrites are positive, though white blood cells are minimally elevated. ASSESSMENT: 1. Angioedema, resolved. 2. Sinus bradycardia, resolved. 3. Cholestasis, resolved. DISCUSSION AND PLAN: We will continue to trend the liver function studies. Hopefully, these will continue to improve. At the end of his spontaneous breathing trial, if he is hemodynamically stable, extubation will be considered. If he does well, we will mobilize him, and see about transitioning him to the telemetry unit. We will switch all of his medications over to p.o. If he is stable hemodynamically and from hemodynamic and respiratory perspective in the morning, he could be considered for transition out of the hospital. Pulmonary/Critical Care will continue to follow along so long as he remains inhouse for the time being. CRITICAL CARE TIME: 30 minutes. Job ID: [id number]
[2018-09-03] MEDS: diphenhydrAMINE 25 MG CAP PO SCH ×2 (17:41→23:27)
[2018-09-03] MEDS: Atorvastatin Calcium 40 MG TAB PER TUBE SCH (20:53)
[2018-09-04] MEDS: diphenhydrAMINE 25 MG CAP PO SCH ×2 (05:44→11:14)
[2018-09-04 07:46] LABS: #Basophils 0.1 thou/uL (0.0-0.2); #Eosinphils 0.1 thou/uL (0.0-0.7); #Lymphocytes 3.7 thou/uL (1.20-3.40); #Monocytes 0.7 thou/uL (0.11-0.59); #Neutrophils 10.2 thou/uL (1.40-6.50); %Basophils 0.6 % (0.0-1.0); %Eosinophils 0.3 % (0.0-10.0); %Monocytes 4.5 % (0.0-10.0); %Neutrophils 69.6 % (42.0-75.0); Hemoglobin 11.8 g/dL (14.0-18.0); Mean Corpuscular HGB CONC 33.1 g/dL (32.0-36.0); Mean Corpuscular Hemoglobin 32.2 pg (27.0-31.0); Mean Corpuscular Volume 97.5 fL (78.0-98.0); Mean Platelet Volume 10.8 fL (7.4-10.4); Platelet Count 188 thou/uL (130-400); RBC Distribution Width 13.4 % (11.5-14.5); Red Blood Cell (RBC) Count 3.65 mill/uL (4.70-6.10); White Blood Cell (WBC) Count 14.7 thou/uL (4.8-10.8)
[2018-09-04 07:54] VITALS: TEMP 98.1
[2018-09-04] MEDS ORDERED: predniSONE 20 MG TAB PO SCH (08:00)
[2018-09-04 08:04] LABS: ALT (SGPT) 54 U/L (8-55); AST (SGOT) 46 U/L (5-34); Albumin 2.8 g/dL (3.5-5.0); Alkaline Phosphatase 386 U/L (40-150); Anion Gap 10 mmol/L (10-20); BUN (Urea Nitrogen) 28 mg/dL (8.4-25.7); Bilirubin, Total 3.7 mg/dL (0.2-1.2); Calc. Creatinine Clearance 146 mL/min (70-130); Calcium 8.3 mg/dL (7.8-10.44); Carbon Dioxide 24 mmol/L (22-29); Chloride 108 mmol/L (98-107); Estimated GFR-MDRD Greater than 90; Globulin 2.4 g/dL (2.4-3.5); Glucose 84 mg/dL (70-105); Potassium 3.2 mmol/L (3.5-5.1); Protein, Total 5.2 g/dL (6.0-8.3); Sodium 139 mmol/L (136-145)
[2018-09-04] MEDS: Clopidogrel Bisulfate 75 MG TAB PER TUBE SCH (08:46)
--- NOTE | 2018-09-04 10:55 | PDOC.PN ---
- Subjective Encounter Start Date: 09/04/18 Encounter Start Time: 10:54 Mr. Marte was seen today in follow-up of Angioedema due to Lisinopril. He does not have any complaints this morning. - Objective Resuscitation Status - Order Detail: 09/01/18 23:56 Resuscitation Status Routine Resuscitation Status: FULL: Full Resuscitation MAR Reviewed: Yes Vital Signs & Weight: Vital Signs (12 hours) Temp Pulse Resp BP Pulse Ox 09/04/18 08:46 93 L 09/04/18 07:50 98.1 F 82 20 129/70 93 L 09/04/18 04:00 97.7 F 82 14 99/55 L 93 L Weight Admit Weight 200 lb Weight 201 lb 8 oz Most Recent Monitor Data Heart Rate from ECG 91 NIBP 136/76 NIBP BP-Mean 96 Respiration from ECG 26 SpO2 100 I&O: 09/03/18 09/04/18 09/05/18 06:59 06:59 06:59 Intake Total 4826.1 2671.3 Output Total 1495 2075 Balance 3331.1 596.3 Result Diagrams: 09/04/18 07:29 09/04/18 07:29 Phys Exam - Physical Examination HEENT: PERRLA, oral pharynx no lesions No stridor Respiratory: no wheezing, no rales, no rhonchi, clear to auscultation bilateral Cardiovascular: RRR, no significant murmur, no rub Gastrointestinal: soft, non-tender, no distention, positive bowel sounds Musculoskeletal: no edema, pulses present Dx/Plan (1) Angioedema Code(s): T78.3XXA - ANGIONEUROTIC EDEMA, INITIAL ENCOUNTER Status: Acute Comment: Suspected due to Lisinopril, improved, avoid DEYA-i, continue Benadryl, convert to Prednisone (2) Choledocholithiasis Code(s): K80.50 - CALCULUS OF BILE DUCT W/O CHOLANGITIS OR CHOLECYST W/O OBST Status: Acute Comment: s/p ERCP with dilation and stent placement 09/01/18, serial LFT's (3) Hypertension Code(s): I10 - ESSENTIAL (PRIMARY) HYPERTENSION Status: Chronic (4) Coronary artery disease Code(s): I25.10 - ATHSCL HEART DISEASE OF [place] CORONARY ARTERY W/O ANG PCTRS Status: Chronic - Plan * Angioedema due to DEYA-I- discussed with the patient- resolved * HTN- blood pressure is stable- will re-start Metoprolol * Stable for discharge home.
[2018-09-04 11:16] VITALS: BP 118/69
[2018-09-04] MEDS ORDERED: Potassium Chloride 20 MEQ TAB PO SCH (11:30)
--- NOTE | 2018-09-04 14:55 | PRG ---
DATE OF SERVICE: 09/04/2018 SERVICE: Pulmonary Medicine. INTERVAL HISTORY: The patient is doing outstanding from a respiratory standpoint. He has had no issue overnight. He denies any fevers, chills, nausea, or vomiting. This morning, on telemetry, he had some PVCs. His potassium was replaced. Once he was up, PVCs resolved and did not come back. He has no complaints otherwise. PHYSICAL EXAMINATION: VITAL SIGNS: Afebrile, pulse 82, blood pressure 129/70, respirations 20, and saturation 93% on room air. GENERAL: The patient is awake and alert, in no apparent distress. LUNGS: Excellent air entry without any prolonged expiratory phase or wheezing present. HEART: Normal rate, regular. ABDOMEN: Soft, nontender, and nondistended. Bowel sounds positive. MUSCULOSKELETAL: No cyanosis or clubbing. No pitting in the bilateral lower extremities. NEUROLOGIC: Grossly nonfocal. LABORATORY DATA: WBC 14.7, hemoglobin 11.8, platelets 188,000. Potassium 3.2. Basic metabolic profile is otherwise unremarkable. Alkaline phosphatase continues to improve. Total bilirubin is now down to 3.7. ASSESSMENT: 1. Angioedema, resolved. 2. Sinus bradycardia, resolved. 3. Cholestasis, resolving following ERCP with sphincterotomy. 4. Nonsustained ventricular tachycardia associated with hypokalemia, resolved. DISCUSSION AND PLAN: The patient is doing really great from a respiratory standpoint. At this point, he is stable for transition out of the hospital. If he remains in- house, he has no further requirements for inpatient Pulmonary Critical Care opinion, and I will sign off. Please call with additional questions or concerns through time. Job ID: [id number]
--- NOTE | 2018-09-05 06:03 | DIS ---
DATE OF ADMISSION: 09/02/2018 DATE OF DISCHARGE: 09/04/2018 PRIMARY CARE PHYSICIAN: Dr. Markos Silveira. DISCHARGE DISPOSITION: Home. DISCHARGE DIAGNOSES: 1. Angioedema secondary to lisinopril. 2. Hypertension. 3. Coronary artery disease. 4. Choledocholithiasis, status post ERCP and stent. DISCHARGE MEDICATIONS: Please note, the patient was taken off lisinopril. Continue; 1. Prednisone 40 mg daily for four days. 2. Metoprolol succinate 25 mg twice a day. 3. Plavix 75 mg daily. 4. Atorvastatin 40 mg q.h.s. CODE STATUS: Full code. ALLERGIES: LISINOPRIL. HOSPITAL COURSE: Mr. Marte is a pleasant 58-year-old gentleman, who presented to the emergency room after it was noted that he had tongue and lip swelling. He had recently been admitted for an ERCP due to a retained common duct stone. He was admitted and he was intubated for airway protection. It was discovered that he was on lisinopril and this was the presumed culprit. He was treated with IV steroids and was able to be extubated soon thereafter. He has been stable overnight on the telemetry unit and can therefore be discharged home in stable condition with close outpatient followup. Job ID: [id number]
--- NOTE | 2018-09-05 20:53 | EKG ---
Test Reason : Blood Pressure : / mmHG Vent. Rate : 119 BPM Atrial Rate : 119 BPM P-R Int : 156 ms QRS Dur : 106 ms QT Int : 314 ms P-R-T Axes : 056 054 -30 degrees QTc Int : 441 ms Sinus tachycardia Possible Left atrial enlargement Possible Inferior infarct , age undetermined Abnormal ECG Confirmed by IVÁN VIZCAINO DO ([id number]), tape editor JORGE MORGAN ([id number] on 09/05/2018 8:53:13 PM Referred By: Confirmed By:IVÁN VIZCAINO DO
== END 2018-09-04 14:30 | disposition home or self-care (01) | DRG 917 ==
LOC: ERS 22:37 → CCU 09-02 01:32 → 2NO 09-03 14:13
PROVIDERS: ADMIT Hospitalist; ATTEND Hospitalist
PROC: 0BH17EZ Insertion of Endotracheal Airway into Trachea, Via Natural or Artificial Opening (ICD-10-PCS; principal; 2018-09-02)
PROC: 5A1935Z Respiratory Ventilation, Less than 24 Consecutive Hours (ICD-10-PCS; 2018-09-02)
DX: T46.4X1A Poisoning by angiotensin-converting-enzyme inhibitors, accidental (unintentional), initial encounter (principal); J96.01 Acute respiratory failure with hypoxia; T78.3XXA Angioneurotic edema, initial encounter; E78.5 Hyperlipidemia, unspecified; I25.10 Atherosclerotic heart disease of native coronary artery without angina pectoris; R73.9 Hyperglycemia, unspecified; I10 Essential (primary) hypertension; I95.9 Hypotension, unspecified; K80.50 Calculus of bile duct without cholangitis or cholecystitis without obstruction; F17.210 Nicotine dependence, cigarettes, uncomplicated; R74.0 Nonspecific elevation of levels of transaminase and lactic acid dehydrogenase [LDH]; Z79.02 Long term (current) use of antithrombotics/antiplatelets; Z98.890 Other specified postprocedural states; Z88.8 Allergy status to other drugs, medicaments and biological substances
CPT/HCPCS: 31500; 36415; 36430; 51702; 71045; 74330; 80048; 80053; 81003; 81015; 82550; 82805; 83735; 84100; 85025; 86850; 86900; 86901; 88104; 93005; 93010; 94002; 94003; 94640; 96365; 96367; 96374; 96375; 96376; 99292; J0696; J1100; J1200; J1265; J1650; J1885; J2001; J2250; J2405; J2704; J2920; J2930; J3010; J3475; J7050; J7620; P9048; Q0163; Q9961; S0028

== ENCOUNTER 2018-12-25 10:01 | Outpatient (CLI) | payer OTHER ==
[2018-12-25 14:31] LABS: #Basophils 0.1 thou/uL (0.0-0.2); #Eosinphils 0.3 thou/uL (0.0-0.7); #Lymphocytes 2.9 thou/uL (1.20-3.40); #Monocytes 0.6 thou/uL (0.11-0.59); #Neutrophils 7.3 thou/uL (1.40-6.50); %Basophils 0.4 % (0.0-1.0); %Eosinophils 2.8 % (0.0-10.0); %Lymphocytes 25.8 % (21.0-51.0); %Monocytes 5.4 % (0.0-10.0); %Neutrophils 65.5 % (42.0-75.0); Mean Corpuscular HGB CONC 33.2 g/dL (32.0-36.0); Mean Corpuscular Hemoglobin 31.1 pg (27.0-31.0); Mean Corpuscular Volume 93.6 fL (78.0-98.0); Mean Platelet Volume 8.4 fL (7.4-10.4); Platelet Count 250 thou/uL (130-400); Red Blood Cell (RBC) Count 4.83 mill/uL (4.70-6.10); White Blood Cell (WBC) Count 11.2 thou/uL (4.8-10.8)
--- NOTE | 2018-12-25 17:26 | EKG ---
Test Reason : Blood Pressure : / mmHG Vent. Rate : 091 BPM Atrial Rate : 091 BPM P-R Int : 146 ms QRS Dur : 094 ms QT Int : 368 ms P-R-T Axes : 057 043 -20 degrees QTc Int : 452 ms Sinus rhythm with PVC's Inferior infarct (cited on or before 01-SEP-2018) Possible Anterior infarct , age undetermined Abnormal ECG When compared with ECG of 01-SEP-2018 23:02, Abberant conduction is now Present Borderline criteria for Anterior infarct are now Present Nonspecific T wave abnormality no longer evident in Lateral leads Confirmed by DR. Veronique WOOTEN ([id number]) on 12/25/2018 5:26:00 PM Referred By: JOSE JUAN Confirmed By:DR. Veronique WOOTEN
== END 2018-12-25 10:02 | disposition home or self-care (01) ==
LOC: LABBT 10:01
PROVIDERS: ATTEND Specialist
DX: Z01.818 Encounter for other preprocedural examination (principal); D13.5 Benign neoplasm of extrahepatic bile ducts
CPT/HCPCS: 80053; 82248; 83615; 84100; 84550; 85025; 86301; 93005; 93010